=== PATIENT | male | born 1960 | race Hispanic/Latino ===

== ENCOUNTER → 2022-11-12 | Outpatient (CLI) | payer OTHER ==
[~2022-11-12] MED LIST: ASPI-556 PO; BUPR100T13 PO; CHOL500051 PO; LISI10TA24 PO; METF-891 PO; PRAV40TA3 PO; TAMS-1 PO
== END | disposition home or self-care (01) ==
LOC: RAH 11:09
DX: N50.812 Left testicular pain (principal)
CPT/HCPCS: 76870

== ENCOUNTER 2023-05-03 06:58 | Day surgery (SDC) | payer OTHER ==
[2023-05-01 12:01] LABS: BASOPHILS % (AUTO) 0.6 % (0.0-5.0); EOSINOPHILS % (AUTO) 3.4 % (0.0-8.0); HEMATOCRIT 43.2 % (42-54); LYMPHOCYTES % (AUTO) 33.6 % (21.0-51.0); MEAN CORPUSCULAR HEMOGLOBIN 29.1 pg (27.0-33.0); MEAN CORPUSCULAR HGB CONC 32.6 g/dL (32.0-36.0); MEAN CORPUSCULAR VOLUME 89.3 fL (79-99); MONOCYTES % (AUTO) 7.6 % (3.0-13.0); PLATELET COUNT (AUTO) 178 K/uL (130-400); RED BLOOD CELL COUNT(AUTO) 4.84 MIL/uL (4.50-6.20); RED CELL DISTRIBUTION WIDTH 14.3 % (11.0-15.5); WHITE BLOOD COUNT (AUTO) 6.2 K/uL (4.8-10.8)
[2023-05-01 12:16] LABS: CREATININE 1.1 mg/dL (0.5-1.5); POTASSIUM 4.2 mmol/L (3.5-5.1)
[2023-05-01 12:33] VITALS: BP 140/74
[2023-05-03] VITALS (18 sets, daily range): BP systolic 96–128; BP diastolic 56–78
[~2023-05-03] VITALS: Ht 168.9 cm; Wt 111.5 kg
[~2023-05-03 06:58] MED LIST changes: +ATOR20TA65 PO; -BUPR100T13 PO; +CLON0.1T PO; +FAMO40TA7 PO; -LISI10TA24 PO; +LORA-192 PO; +LORA10TA7 PO; +LOSA50TA64 PO; +METF-444 PO; -METF-891 PO; +MVIT PO; +OMEG-148 PO; -PRAV40TA3 PO
[2023-05-03] MEDS ORDERED: CEFTRIAXONE 1G VIAL ONE (07:08)
[2023-05-03] MEDS ORDERED: 0.9%NACL 1000ML 1,000 ML IV ONE (07:08)
[2023-05-03] MEDS ORDERED: SUCCINYLCHOLINE 200MG/10ML SYR ONE (07:19)
[2023-05-03] MEDS ORDERED: LIDOCAINE PF 100MG/5ML (2%) SYRINGE 5ML ONE (07:19)
[2023-05-03] MEDS ORDERED: DEXAMETHASONE SOD PHOSPHATE 10MG/ML 1ML VIAL ONE (07:19)
[2023-05-03] MEDS ORDERED: FENTANYL CITRATE PF 50 MCG/1 ML 2ML VIAL ONE (07:20)
[2023-05-03] MEDS ORDERED: PROPOFOL 10 MG/ML 20ML VIAL IV ONE (07:20)
[2023-05-03] MEDS ORDERED: MIDAZOLAM HCL 1 MG/ML 2ML VIAL ONE (07:20)
[2023-05-03] MEDS ORDERED: ONDANSETRON 4MG INJ ONE ×2 (07:20→09:21)
[2023-05-03] MEDS ORDERED: GLYCOPYRROLATE 1 MG/5 ML SYRINGE ONE (07:20)
[2023-05-03] MEDS ORDERED: NEOSTIGMINE 5MG/5ML SYR IV ONE (07:20)
[2023-05-03] MEDS ORDERED: ROCURONIUM 10MG/1ML SYR 10 MG/ML ML ONE (07:20)
[2023-05-03] MEDS ORDERED: KETOROLAC 30MG VIAL (30MG/ML) ONE (08:32)
[2023-05-03] MEDS ORDERED: MEPERIDINE-PF 25 MG/ML SYG ONE (09:21)
[2023-05-03] MEDS ORDERED: LIDOCAINE HCL-MPF 2% 10ML AMP IJ ONE (09:22)
[2023-05-03] MEDS ORDERED: PHENAZOPYRIDINE HCL 200 MG TABLET ONE (10:15)
== END 2023-05-03 12:20 | disposition home or self-care (01) ==
LOC: DAH 06:58
PROVIDERS: ATTEND Urology
DX: N30.20 Other chronic cystitis without hematuria (principal); Z20.822 Contact with and (suspected) exposure to COVID-19; N35.819 Other urethral stricture, male, unspecified site; N40.0 Benign prostatic hyperplasia without lower urinary tract symptoms; K21.9 Gastro-esophageal reflux disease without esophagitis; I10 Essential (primary) hypertension; F41.9 Anxiety disorder, unspecified; E11.9 Type 2 diabetes mellitus without complications; E66.9 Obesity, unspecified; Z79.01 Long term (current) use of anticoagulants; Z79.899 Other long term (current) drug therapy; Z88.0 Allergy status to penicillin; Z88.2 Allergy status to sulfonamides; Z98.890 Other specified postprocedural states; Z98.52 Vasectomy status; Z85.72 Personal history of non-Hodgkin lymphomas; Z68.39 Body mass index [BMI] 39.0-39.9, adult
CPT/HCPCS: 93005; 87426; 80048; 85025; 36415; 52204; 82948 ×2; A6260; A4663; J7120; A4344; A4354; C1758; J3010; J0330; J3490 ×2; J1100; J2710; J7030; J2001; J0696; J2250; J2704; J2405 ×2; J1885; J2175; A4358 ×2; A4215; A4223; A4222; A4221; A5113 ×2; A4600; A4510